=== PATIENT | female | born 1995 | race Asian ===

== ENCOUNTER 2017-04-20 09:40 | Emergency (ER) | payer OTHER ==
--- NOTE | 2017-04-20 10:22 | ED Physician Documentation ---
History of Present Illness - Stated complaint Stated Complaint: FEMALE - Chief complaint Chief Complaint: Abd Pain - History obtained from History obtained from: Patient, Family - History of Present Illness Timing: How many days ago - Additonal information Additional information: Patient is a pleasant well-appearing young female of 22 years of age she presents with a complaint of lower urinary symptoms, discharge, burning, and vaginal pain. Her symptoms are similar to previous yeast infection although they are little bit more severe. She is hoping her symptoms would go away and actually took topical [id number] antifungal medication without any improvement she is here seeking evaluation. She has not had any fever chills, nausea, vomiting, constipation or diarrhea. She is otherwise healthy and has a previous recent infection but no history of STDs. Review of systems: for pertinent positives and negatives history of present illness otherwise all other systems have been reviewed and are normal Review of Systems Ten Systems: 10 systems reviewed and negative GI: denies: Abdominal Pain, Abdominal Swelling, Constipation, Diarrhea PD PAST MEDICAL HISTORY - Past Medical History Past Medical History: No - Past Surgical History Past Surgical History: No - Present Medications Home Medications: Ambulatory Orders Medication Instructions Recorded Confirmed No Known Home Medications [No 04/20/17 04/20/17 Known Home Medications] - Allergies Allergies/Adverse Reactions: Allergies Allergy/AdvReac Type Severity Reaction Status Date / Time No Known Drug Allergies Allergy Verified 04/20/17 09:47 - Social History Does the pt smoke?: No Smoking Status: Never smoker Does the pt drink ETOH?: No Does the pt have substance abuse?: No - Immunizations Immunizations are current?: Yes PD ED PE NORMAL - Vitals Vital signs reviewed: Yes - General General: Alert and oriented X 3, No acute distress - HEENT HEENT: PERRL - Neck Neck: Supple, no meningeal sign - Cardiac Cardiac: RRR, No murmur - Respiratory Respiratory: Clear bilaterally - Abdomen Abdomen: Normal bowel sounds, Soft, Non tender, Non distended - Derm Derm: Warm and dry - Extremities Extremities: No deformity - Neuro Neuro: Alert and oriented X 3 - Psych Psych: Normal mood, Normal affect Results - Vitals Vitals: Vital Signs - 24 hr 04/20/17 09:43 Temperature 36.6 C Heart Rate 82 Respiratory 18 Rate Blood Pressure 117/62 O2 Saturation 99 - Labs Labs: Laboratory Tests 04/20/17 04/20/17 10:30 10:30 Urine Color YELLOW Urine Clarity TURBID Urine pH 5.5 Ur Specific [place] >=1.030 H >=1.030 H Urine Protein NEGATIVE Urine Glucose (UA) NEGATIVE Urine Ketones NEGATIVE Urine Occult Blood MODERATE H Urine Nitrite NEGATIVE Urine Bilirubin NEGATIVE Urine Urobilinogen 0.2 (NORMAL) Ur Leukocyte Esterase MODERATE H Urine RBC 11-25 H Urine WBC >25 H Ur Squamous Epith Cells MOD Squamous H Urine Bacteria Moderate H Ur Microscopic Review INDICATED Urine Culture Comments NOT INDICATED Urine HCG, Qual NEGATIVE PD MEDICAL DECISION MAKING - ED course ED course: Patient is a well-appearing young female who presents with lower urinary symptoms and irritation and swelling to her vaginal area 3 days. She has noticed a whitish discharge as well. On examination there is mild erythema and external evidence of discharge on physical exam. On clinically thought the patient may have herpes simplex however he did not see any characteristic lesions. On bimanual examination and speculum examination there is a large amount of off whitish discharge on a erythematous mucosa more consistent with yeast vaginitis. She is given Diflucan here and a single dose of ciprofloxacin or put on a short course of ciprofloxacin followed up by additional dose of Diflucan at the end. Clinical impression: 1. Probable urinary tract infection 2. Suspect yeast vaginitis 3. Doubt herpes
[2017-04-20 10:45] LABS: BILIRUBIN,URINE NEGATIVE (NEGATIVE); PH,URINE 5.5 PH (5.0-7.5)
[2017-04-20 10:55] LABS: HCG UR QUAL NEGATIVE; UA w/ MICROSCOPIC CHARGE YES
[2017-04-20 10:59] LABS: UR CULTURE IF IND NOT INDICATED; WBC,URINE >25 /HPF (0-5)
[2017-04-20] MEDS ORDERED: FLUCONAZOLE 100 MG TABLET PO STA (11:23)
[2017-04-20] MEDS ORDERED: CIPROFLOXACIN 250 MG TABLET PO STA (11:23)
[2017-04-20] MEDS ORDERED: CIPROFLOXACIN 250 MG TABLET PO ONE (11:25)
[2017-04-20] MEDS ORDERED: FLUCONAZOLE 100 MG TABLET ONE (11:25)
[2017-04-20 11:37] VITALS: BP 103/69
== END 2017-04-20 11:38 | disposition home or self-care (01) ==
LOC: ED 09:40
DX: N89.8 Other specified noninflammatory disorders of vagina (principal)
CPT/HCPCS: 81001; 81025; 87210; 87220; 87491; 87529; 87591; 99283; A9270; 81003; 86695; 86696; 87081; 87086